=== PATIENT | female | born 1990 | race Caucasian/White ===

== ENCOUNTER 2017-09-23 16:14 | Emergency (ER) | payer BC ==
[2015-01-11 11:22] VITALS: Ht 167.6 cm; Wt 72.6 kg
[~2017-09-23] VITALS: Ht 167.6 cm; Wt 72.6 kg
[~2017-09-23 16:14] MED LIST: ACET-1718 PO; ACET-3143 PO; FAMO20TA28 PO; IBU800 PO; IBUP800T37 PO; NIFE10CA38 PO; PREN-127 PO
--- NOTE | 2017-09-23 16:15 | ER Report ---
History and Physical Time Seen By MD: 16:15 HPI/ROS CHIEF COMPLAINT: anxiety HISTORY OF PRESENT ILLNESS: Pt here for evaluation after a panic attack. Pt states she is going thru and divorce and she has "a lot of stress" currently. PT has hx of panic attacks and used to be on ativan but lost insurance a while ago and stopped her meds. [employer]CH[employer]IC[employer] pt had a panic attack. Came in due to it was one of her bad ones. Pt states she still has some ache in her chest and wants to make its not anything else.Pt has felt run down and tired last few days. Pt had gi bug a few days ago. Pt denies sob. REVIEW OF SYSTEMS: Constitutional: No fever, no chills. Eyes: No discharge. ENT: No sore throat. Cardiovascular: + chest pain, no palpitations. Respiratory: No cough, no shortness of breath. Gastrointestinal: No abdominal pain, no vomiting. Genitourinary: No hematuria. Musculoskeletal: No back pain. Skin: No rashes. Neurological: No headache. Psych: anxiety Allergies: Coded Allergies: aripiprazole (Verified Allergy, Intermediate, HIVES, 01/10/15) Home Meds Discontinued Reported Medications Vits W-Ca,Fe,Fa(<1MG) ( VITAMINS) 1 Each Tablet, 1 EACH PO DAILY, TAB 10/20/14 Discontinued Scripts Ibuprofen (IBUPROFEN) 800 Mg Tablet, 1 TAB PO Q8H, #30 TAB Prov:KIET JACKSON MD 01/12/15 Acetaminophen With Codeine # 3 (ACETAMINOPHEN-COD #3 TABLET) 1 Each Tablet, 1-2 EACH PO Q4H Y for PAIN, #30 TAB Prov:KIET JACKSON MD 01/12/15 Past Medical/Surgical History Pmhx: miscarriages, anxiety Pshx: rhinoplasty Reviewed Nurses Notes: Yes Old Medical Records Reviewed: Yes Hx Smoking: No Smoking Status: Former Smoker Exposure to Second Hand Smoke?: Yes Hx Substance Use Disorder: No Hx Alcohol Use: Yes (OCCASIONAL) Constitutional Vital Sign - Last 24 Hours 09/23/17 16:19 Pulse 69 Resp 20 B/P (MAP) 138/94 Pulse Ox 96 O2 Delivery Room Air Physical Exam General Appearance: The patient is alert, has no immediate need for airway protection and no signs of toxicity. Eyes: Pupils equal and round no pallor or injection, EOMI ENT: no pharyngeal erythema or exudates, Mucous membranes are moist Respiratory: There are no retractions, lungs are clear to auscultation. Cardiovascular: Regular rate and rhythm. pulses are equal and symmetrical Gastrointestinal: Abdomen is soft and non tender, no masses, bowel sounds normal, no guarding, no rigidity or rebound Neurological: Cranial nerves II-XII grossly intact, no sensory or motor loss Skin: Warm and dry, no rashes. Musculoskeletal: Neck is supple non tender, no vertebral tenderness Extremities are nontender, non swollen and have full range of motion. DIFFERENTIAL DIAGNOSIS: After history and physical exam differential diagnosis was considered for anxiety, cardiac, influenza Medical Decision Making Data Points Laboratory Hematology Test 09/23/17 16:35 Influenza Virus Type A (PCR) Negative (NEGATIVE) Influenza Virus Type B (PCR) Negative (NEGATIVE) Chemistry Test 09/23/17 16:35 Influenza Virus Type A (PCR) Negative (NEGATIVE) Influenza Virus Type B (PCR) Negative (NEGATIVE) EKG/Imaging EKG Interpretation nsr @ 60 with sinus arrhythmia ED Course/Re-evaluation ED Course 09/23/2017 5:23:00 pm Pt feeling better after the ativan. Decision to Disposition Date: Sep 23, 2017 Decision to Disposition Time: 17:22 Depart Departure Latest Vital Signs Vital Signs Date Time Temp Pulse Resp B/P (MAP) Pulse Ox O2 Delivery O2 Flow Rate FiO2 09/23/17 16:19 69 20 138/94 96 Room Air Impression: Primary Impression: Panic attack as reaction to stress Condition: Improved Disposition: HOME OR SELF-CARE New Scripts Lorazepam (ATIVAN) 1 Mg Tablet 1 MG PO Q6-8H Y for ANXIETY, #10 TAB Prov: ANUPAM HOLM DO 09/23/17 Patient Instructions: Panic Attack (GEN) Additional Instructions: Return for any concerns. I script for Ativan was sent to your pharmacy. Follow up with your family doctor. ANUPAM HOLM DO Sep 23, 2017 16:15
[2017-09-23] MEDS ORDERED: LORazepam 1 MG TAB PO ONE (16:35)
--- NOTE | 2017-09-23 16:43 | EKG ---
FACILITY: [facility] PATIENT NAME: JANETTE MAY : [id number] MR: [id number] V: [id number] EXAM DATE: ORDERING PHYSICIAN: ANUPAM HOLM TECHNOLOGIST: SOFIA Watson Reason : PANIC ATTACK Blood Pressure : / mmHG Vent. Rate : 060 BPM Atrial Rate : 060 BPM P-R Int : 120 ms QRS Dur : 086 ms QT Int : 398 ms P-R-T Axes : 049 091 064 degrees QTc Int : 398 ms Normal sinus rhythm with sinus arrhythmia Rightward axis Borderline ECG No previous ECGs available Confirmed by KIET HEARD ([id number]) on 09/25/2017 7:43:51 AM Referred By: Confirmed By:KIET HEARD
[2017-09-23 17:00] VITALS: BP 109/87
[2017-09-23] MEDS ORDERED: LORA-1456 PO (17:21)
== END 2017-09-23 17:29 | disposition home or self-care (01) ==
LOC: ER 16:26
DX: F41.0 Panic disorder [episodic paroxysmal anxiety] (principal)
CPT/HCPCS: 87502; 93005; 99283

== ENCOUNTER 2018-05-05 15:41 | Emergency (ER) | payer BC ==
[2015-01-11 11:22] VITALS: Wt 74.8 kg
[~2018-05-05 15:41] MED LIST changes: +LORA-1456 PO
--- NOTE | 2018-05-05 15:56 | ER Report ---
History and Physical Time Seen By MD: 15:40 Hx. of Stated Complaint: PT STEPPED IN A HOLE LAST NIGHT WHILE WALKING AND LOOKING AT HER PHONE, INJURING L ANKLE HPI/ROS CHIEF COMPLAINT: Left ankle pain HISTORY OF PRESENT ILLNESS: 27-year-old female patient presents to emergency room with complaint of left ankle pain. Patient states that she's been having pain for the past few hours. She states that she was walking last night and st epped in hole. She states while she was walking she was looking at her phone and did not see the hole. States when she did that that her left ankle twisted. She states since then she's been having significant amounts pain. She has pain with ambulation. She denies any numbness tingling in toes. Patient states she's got good strength to the ankle, however she puts full weight on that she does have worsening pain. Patient states she has not taken any medication for this. Allergies: Coded Allergies: aripiprazole (Verified Allergy, Intermediate, HIVES, 05/05/18) Home Meds Discontinued Scripts Lorazepam (ATIVAN) 1 Mg Tablet, 1 MG PO Q6-8H PRN for ANXIETY, #10 TAB Prov:ANUPAM HOLM V DO 09/23/17 Past Medical/Surgical History Patient has a past medical history of occasional alcohol use, depression, anxiety, cutting. Patient denies any surgical history. Reviewed Nurses Notes: Yes Hx Smoking: No Smoking Status: Former Smoker Exposure to Second Hand Smoke?: Yes Hx Substance Use Disorder: No Hx Alcohol Use: Yes (OCCASIONAL) Constitutional Vital Sign - Last 24 Hours 05/05/18 05/05/18 05/05/18 05/05/18 15:45 15:52 16:00 16:11 Temp 98.5 Pulse 70 93 Resp 20 B/P (MAP) 129/94 129/94 (106) 127/75 (92) Pulse Ox 98 96 O2 Delivery Room Air 05/05/18 05/05/18 05/05/18 16:30 16:41 17:00 Pulse 78 B/P (MAP) 123/79 (94) 112/76 (88) Pulse Ox 95 Physical Exam General appearance: Alert no distress. Respiratory: Chest is non tender, lungs are clear to auscultation. Cardiac: Regular rate and rhythm. Musculoskeletal: Patient does have swelling and tenderness to the left ankle. Patient has good strength with plantarflexion and dorsiflexion. No numbness and tingling noted. Patient had brisk capillary refill. DIFFERENTIAL DIAGNOSIS: After history and physical exam differential diagnosis was considered for ankle sprain, ankle fracture. Medical Decision Making EKG/Imaging Imaging Technique: ANKLE 3 VIEW MIN LEFT HISTORY: : Pain on lateral side Comparison studies: None FINDINGS: There is no acute fracture. The alignment of the ankle mortise is maintained. Soft tissue swelling surrounds the lateral malleolus. IMPRESSION: 1. Soft tissue swelling without evidence of an acute underlying osseous process. Report Dictated By: Kaushik Benitez DO at 05/05/2018 4:22 PM Report E-Signed By: Kaushik Benitez DO at 05/05/2018 4:22 PM ED Course/Re-evaluation ED Course Patient was examined, history and physical obtained. Differential diagnoses were considered. On examination patient does have swelling and tenderness to the left ankle. She is good strength with dorsiflexion and plantar flexion. X-rays done of the left ankle which was negative. I discussed findings with patient. We will go ahead and put her in an Tahir wrap. She is to limit activity by pain. She is to follow-up with [facility] if pain persists. Patient states Tylenol or ibuprofen as if pain. Patient verbalized understanding and agreement with plan. Decision to Disposition Date: May 05, 2018 Decision to Disposition Time: 17:04 Depart Departure Latest Vital Signs Vital Signs Date Time Temp Pulse Resp B/P (MAP) Pulse Ox O2 Delivery O2 Flow Rate FiO2 05/05/18 17:00 112/76 (88) 05/05/18 16:41 78 95 05/05/18 15:45 98.5 20 Room Air Impression: Primary Impression: Left ankle sprain Condition: Improved Disposition: HOME OR SELF-CARE New Scripts No Active Prescriptions or Reported Meds Patient Instructions: Ankle Sprain (ED) Additional Instructions: Limit activity by pain. Ice the ankle 2-3 times a day for 10-15 minutes. Take Tylenol or Ibuprofen as needed for pain. Follow up with [facility] next week if there is no improvement by Wednesday. Return to the ER if condition worsens. Problem Qualifiers Primary Impression: Left ankle sprain Encounter type: initial encounter Involved ligament of ankle: unspecified ligament Qualified Codes: S93.402A - Sprain of unspecified ligament of left ankle, initial encounter ARTEMIO KUMAR May 05, 2018 15:56
--- NOTE | 2018-05-05 16:27 | RADIOLOGY IMAGING REPORT ---
FACILITY: [facility] [place] PATIENT NAME: Kasia Thomas : 1990 MR: [id number] V: [id number] EXAM DATE: ORDERING PHYSICIAN: ARTEMIO KUMAR TECHNOLOGIST: Location: [facility] - [place] Patient: Kasia Thomas : 1990 Visit/Account:[id number] Date of Sevice: 05/05/2018 Technique: ANKLE 3 VIEW MIN LEFT HISTORY: : Pain on lateral side Comparison studies: None FINDINGS: There is no acute fracture. The alignment of the ankle mortise is maintained. Soft tissue swelling surrounds the lateral malleolus. IMPRESSION: 1. Soft tissue swelling without evidence of an acute underlying osseous process. Report Dictated By: Kaushik Benitez DO at 05/05/2018 4:22 PM Report E-Signed By: Kaushik Benitez DO at 05/05/2018 4:22 PM WSN:[id number]
[2018-05-05 17:00] VITALS: BP 112/76
== END 2018-05-05 17:11 | disposition home or self-care (01) ==
LOC: ER 15:58
DX: S93.402A Sprain of unspecified ligament of left ankle, initial encounter (principal)
CPT/HCPCS: 99283